=== PATIENT | male | born 1970 | race Caucasian/White ===

== ENCOUNTER 2017-11-23 22:57 | Emergency (ER) | payer OTHER ==
[~2017-11-23] VITALS: Ht 180.3 cm; Wt 71.7 kg
[2017-11-23 23:43] VITALS: Ht 180.3 cm; Wt 71.7 kg
[2017-11-24 04:51] VITALS: BP 119/76
== END 2017-11-24 04:51 | disposition home or self-care (01) ==
LOC: ED 22:57
DX: H60.92 Unspecified otitis externa, left ear (principal); H66.92 Otitis media, unspecified, left ear
CPT/HCPCS: J8597

== ENCOUNTER 2018-05-28 04:43 | Emergency (ER) | payer OTHER ==
[~2018-05-28] VITALS: Ht 180.3 cm; Wt 73.9 kg
[2018-05-28 04:53] VITALS: Ht 180.3 cm; Wt 73.9 kg
[2018-05-28 05:56] VITALS: BP 122/69
== END 2018-05-28 05:56 | disposition home or self-care (01) ==
LOC: ED 04:43
DX: H65.92 Unspecified nonsuppurative otitis media, left ear (principal)

== ENCOUNTER 2018-08-15 15:12 | Emergency (ER) | payer OTHER ==
[2018-08-15 15:32] VITALS: Ht 180.3 cm
[2018-08-15 15:59] VITALS: BP 133/71
== END 2018-08-15 15:59 | disposition home or self-care (01) ==
LOC: ED 15:12
DX: H66.92 Otitis media, unspecified, left ear (principal)

== ENCOUNTER 2020-09-27 | Emergency (ER) | payer OTHER ==
[~2020-09-27] VITALS: Ht 180.3 cm; Wt 70.3 kg
[2020-09-27 00:15] VITALS: Ht 180.3 cm; Wt 70.3 kg
[2020-09-27 01:24] VITALS: BP 116/75
== END 2020-09-27 01:24 | disposition home or self-care (01) ==
LOC: ED
DX: H66.92 Otitis media, unspecified, left ear (principal)

== ENCOUNTER 2021-01-29 11:34 | Emergency (ER) | payer MEDICAID ==
[~2021-01-29] VITALS: Ht 180.3 cm; Wt 72.6 kg
[2021-01-29 12:01] VITALS: Ht 180.3 cm; Wt 72.6 kg
[2021-01-29] MEDS ORDERED: IBU600 M2 PO (13:53)
[2021-01-29 14:11] VITALS: BP 105/71
== END 2021-01-29 14:12 | disposition home or self-care (01) ==
LOC: ED 11:34
DX: S50.12XA Contusion of left forearm, initial encounter (principal); M70.22 Olecranon bursitis, left elbow; W18.09XA Striking against other object with subsequent fall, initial encounter; Y93.51 Activity, roller skating (inline) and skateboarding; Y92.89 Other specified places as the place of occurrence of the external cause; Y99.8 Other external cause status